=== PATIENT | female | born 1990 | race African-American/Black ===

== ENCOUNTER 2017-06-01 19:51 | Emergency (ER) | payer SELFPAY ==
[~2017-06-01] VITALS: Ht 157.5 cm; Wt 50.8 kg
[~2017-06-01 19:51] MED LIST: DEPAKOTE; WELLBUTRIN
[2017-06-01] MEDS ORDERED: BUPR300T52 PO (20:41)
--- NOTE | 2017-06-01 20:52 | NUR ---
PT AMBULATED TO RESTROOM UNASSISTED W/ STEADY GAIT TO GIVE URINE SAMPLE.
[2017-06-01 21:00] LABS: *BILIRUBIN,URIN NEGATIVE (NEGATIVE); *BLOOD, URINE NEGATIVE (NEGATIVE); *COLOR,URINE YELLOW (YELLOW); *KETONES,URINE NEGATIVE (NEGATIVE); *PROTEIN,URINE NEGATIVE (NEGATIVE); *UROBILINOGEN,URINE 0.2 E.U./dl (NORMAL); LEUKOCYTE ESTERASE ,URINE TRACE (NEGATIVE); NITRITE, URINE NEGATIVE (NEGATIVE); UGLUCOSE NEGATIVE (NEGATIVE)
[2017-06-01 21:04] LABS: *URINE HCG, QUAL NEGATIVE (NEGATIVE)
[2017-06-01 21:12] LABS: *CLARITY,URINE SLIGHTLY HAZY (CLEAR)
[2017-06-01 21:13] LABS: BACTERIA,URINE MODERATE /HPF (NONE SEEN); MUCUS,URINE FEW /LPF (0-FEW); SQUAMOUS EPITHELIAL CELL,UR MODERATE /HPF (NONE SEEN)
[2017-06-01] MEDS ORDERED: IV NORMAL SALINE 1000 ML BAG IV ONE (21:15)
[2017-06-01 21:36] LABS: BASOPHILS # (AUTO) 0.1 K/uL (0.0-8.0); EOSINOPHILS # (AUTO) 0.1 K/uL (0.0-0.7); EOSINOPHILS % (AUTO) 1.2 % (0.0-7.0); HEMATOCRIT 33.6 % (31.2-41.9); HEMOGLOBIN 11.7 g/dL (10.9-14.3); LYMPHOCYTES # (AUTO) 2.6 K/uL (20.0-40.0); LYMPHOCYTES % (AUTO) 39.9 % (20.5-51.5); MEAN CORPUSCULAR HGB CONC 35 g/dL (32.3-35.6); MEAN CORPUSCULAR VOLUME 91.5 fL (75.5-95.3); MONOCYTES # (AUTO) 0.4 K/uL (2.0-10.0); MONOCYTES % (AUTO) 6.5 % (0.0-11.0); NEUTROPHILS # (AUTO) 3.3 K/uL (1.8-8.9); NEUTROPHILS % (AUTO) 51.4 % (38.5-71.5); PLATELET COUNT (AUTO) 240 K/uL (179-408); RED BLOOD CELL COUNT(AUTO) 3.67 MIL/uL (3.63-4.92); WHITE BLOOD COUNT (AUTO) 6.5 K/uL (3.8-11.8)
[2017-06-01 21:41] LABS: CREATININE 0.8 mg/dL (0.6-1.3); POTASSIUM 3.7 mmol/L (3.5-5.1)
[2017-06-01 21:47] LABS: BILIRUBIN,DIRECT 0.1 mg/dL (0.0-0.2); BILIRUBIN,TOTAL 0.3 mg/dL (0.2-1.0); TOTAL PROTEIN, SERUM 6.8 g/dL (6.4-8.2)
--- NOTE | 2017-06-01 22:08 | NUR ---
PT IN BED RECEIVING IV FLUIDS. PT IS A&OX4. VSS. BREATH SOUNDS REGULAR AND UNLABORED. NO SIGNS OF DISTRESS WITNESSED.
--- NOTE | 2017-06-01 22:32 | NUR ---
Patient discharged to home in stable conditon. Written and verbal after care instructions given. Patient verbalizes understanding of instructions.
[2017-06-01 22:54] VITALS: BP 110/80
== END 2017-06-01 22:32 | disposition home or self-care (01) ==
LOC: ER 19:53
DX: R53.81 Other malaise (principal); M54.5 Low back pain; F84.5 Asperger's syndrome; F17.200 Nicotine dependence, unspecified, uncomplicated
CPT/HCPCS: 36415; 80048; 80076; 81001; 84443; 84703; 85025; 96360; 99284; A4663; J7030

== ENCOUNTER 2018-04-13 23:00 | Emergency (ER) | payer MEDICAID ==
[~2018-04-13] VITALS: Ht 157.5 cm; Wt 52.2 kg
[~2018-04-13 23:00] MED LIST changes: +BUPR300T52 PO; -DEPAKOTE; -WELLBUTRIN
--- NOTE | 2018-04-13 23:20 | NUR ---
Pt. ambulated into ED w/ c/o bilat. flank pain, nausea and a feeling of cloudiness x 1 mos. A/Ox4, denies F/C/MANNING/V/D, BS active x4, abd. soft/round/non-distended/non-tender, at bedside for MSE, urine collected and sent to lab,
[2018-04-13 23:31] LABS: *BILIRUBIN,URIN NEGATIVE (NEGATIVE); *BLOOD, URINE NEGATIVE (NEGATIVE); *CLARITY,URINE CLEAR (CLEAR); *COLOR,URINE LIGHT YELLOW (YELLOW); *KETONES,URINE NEGATIVE (NEGATIVE); *UROBILINOGEN,URINE 0.2 E.U./dl (NORMAL); LEUKOCYTE ESTERASE ,URINE NEGATIVE (NEGATIVE); NITRITE, URINE NEGATIVE (NEGATIVE); PH,URINE 6.5 (5.0-8.0); UGLUCOSE NEGATIVE (NEGATIVE)
[2018-04-13 23:36] LABS: *URINE HCG, QUAL NEGATIVE (NEGATIVE); BACTERIA,URINE FEW /HPF (NONE SEEN); RBC,URINE 0-3 /HPF (0-3); SQUAMOUS EPITHELIAL CELL,UR FEW /HPF (NONE SEEN); WBC,URINE 0-3 /HPF (0-3)
--- NOTE | 2018-04-14 00:03 | NUR ---
Patient discharged to home in stable conditon. Written and verbal after care instructions given. Patient verbalizes understanding of instructions. Pt. d/c w/ prescription per MD orders, d/c papers signed, all belongings w/ pt., ambulated out w/ steady gait, left in private vehicle, no acute distress,
== END 2018-04-14 00:07 | disposition home or self-care (01) ==
LOC: ER 23:01
DX: M54.5 Low back pain (principal); R11.0 Nausea; F17.200 Nicotine dependence, unspecified, uncomplicated; Z79.899 Other long term (current) drug therapy
CPT/HCPCS: 84703; A4663